=== PATIENT | female | born 1995 | race Caucasian/White ===

== ENCOUNTER → 2016-11-04 | Outpatient (CLI) | payer MEDICAID | LOC: RAD 14:45 | PROVIDERS: ATTEND Nurse Practitioner Women's Health | DX: Z34.83 Encounter for supervision of other normal pregnancy, third trimester (principal) | CPT/HCPCS: 76805 ==

== ENCOUNTER 2016-11-16 18:07 | Outpatient (CLI) | payer MEDICAID ==
--- NOTE | 2016-11-16 19:11 | Non Stress Test Report ---
Non Stress Test Datetime Report Generated by CPN: 11/16/2016 19:10 DEMOGRAPHIC EGA NST: 39.0 INDICATION Indication for Study: Ordered by Provider Indication for Study (NST) Other: no care MONITORING Monitor Explained: Monitor Explained; Test Explained; Patient Verbalized Understanding Time on Monitor: 11/16/2016 18:36 Time off Monitor: 11/16/2016 19:02 NST Duration: 26 NST INTERVENTIONS NST Interventions: Reposition Patient Physician Notified NST: PBrian Peter CNM BABY A: [id number] BABY A Movement : Present Contraction Frequency : irregular FHR Baseline : 125 Accelerations : 15X15 Decelerations : None Variability : Moderate 6-25bpm NST Review: Meets Criteria for Reactive NST NST Review and Verified By : Iain Nix RN NST Results: Reactive NST REPORT Report Trigger: Send Report
== END 2016-11-16 19:03 | disposition home or self-care (01) ==
LOC: LC 18:07
PROVIDERS: ATTEND Obstetrics & Gynecology
PROC: 4A1HXCZ Monitoring of Products of Conception, Cardiac Rate, External Approach (ICD-10-PCS; principal; 2016-11-16)
DX: O47.1 False labor at or after 37 completed weeks of gestation (principal); O09.33 Supervision of pregnancy with insufficient antenatal care, third trimester; Z3A.39 39 weeks gestation of pregnancy
CPT/HCPCS: 59025

== ENCOUNTER 2016-11-21 08:57 | Inpatient (IN) | payer MEDICAID ==
[2016-11-21] MEDS ORDERED: RINGERS SOLUTION,LACTATED 1,000 ML IV PRN (09:50)
[2016-11-21 10:08] LABS: APPEARANCE,URINE CLOUDY; BILIRUBIN,URINE NEGATIVE (NEGATIVE); GLUCOSE, URINE NEGATIVE (NEGATIVE); KETONES,URINE NEGATIVE (NEGATIVE); LEUKOCYTE ESTERASE,URINE MODERATE (NEGATIVE); NITRITE,URINE NEGATIVE (NEGATIVE); PROTEIN,URINE NEGATIVE (NEGATIVE); URINE SPECIFIC GRAVITY 1.015; UROBILINOGEN,URINE NEGATIVE mg/dL (<2.0)
[2016-11-21 10:31] LABS: URINE BARBITURATES SCREEN NEGATIVE; URINE METHADONE SCREEN NEGATIVE; URINE OPIATES LOW NEGATIVE; URINE PHENCYCLIDINE SCREEN NEGATIVE
[2016-11-21] MEDS ORDERED: NALBUPHINE HCL INJ 10 MG/1 ML AMPULE ONE (10:52)
[2016-11-21] MEDS ORDERED: ONDANSETRON HCL INJ/PF 4 MG/2 ML SDV ONE (10:55)
[2016-11-21] MEDS ORDERED: OXYTOCIN/NORMAL SALINE 20 UNIT/1,000 ML RTUINJ ONE (10:57)
[2016-11-21] MEDS ORDERED: LIDOCAINE 1% INJ-PF (10 MG/ML) 30 ML SDV ONE (10:57)
[2016-11-21] MEDS ORDERED: MISOPROSTOL 0.2 MG TABLET ONE (10:57)
[2016-11-21] MEDS ORDERED: FENTANYL CITRATE INJ/PF 100 MCG/2 ML AMPUL ONE (11:13)
[2016-11-21 11:26] LABS: ABSOLUTE EOSINOPHILS # (AUTO) 0.1 10^3/uL (0.0-0.6); ABSOLUTE LYMPHOCYTES (AUTO) 0.9 10^3/uL (0.5-4.7); ABSOLUTE MONOCYTES (AUTO) 0.6 10^3/uL (0.1-1.4); ABSOLUTE NEUT (AUTO) 11.9 10^3/uL (1.7-8.2); BASOPHILS % (AUTO) 0.2 % (0-2); HEMATOCRIT 36.4 % (36.0-47.0); HEMOGLOBIN 12.5 g/dL (12.0-15.5); HGB HCT DIFFERENCE 1.1; LYMPHOCYTES % (AUTO) 6.9 % (13-45); MEAN CORPUSCULAR HEMOGLOBIN 29.2 pg (27.0-33.4); MEAN CORPUSCULAR HGB CONC 34.4 g/dL (32.0-36.0); MEAN CORPUSCULAR VOLUME 85 fl (80-97); MONOCYTES % (AUTO) 4.2 % (3-13); RED BLOOD COUNT 4.29 10^6/uL (3.72-5.28); RED CELL DISTRIBUTION WIDTH 14.5 % (11.5-14.0); SEGMENTED NEUTROPHILS % (AUTO) 87.7 % (42-78); WHITE BLOOD COUNT 13.6 10^3/uL (4.0-10.5)
[2016-11-21] MEDS ORDERED: PROMETHAZINE HCL 25 MG SUPP.RECT PR PRN (12:26)
[2016-11-21] MEDS ORDERED: MAGNESIUM HYDROXIDE SUSP 30 ML UDCUP PO PRN (12:26)
[2016-11-21] MEDS ORDERED: ACETAMINOPHEN WITH CODEINE #3 TABLET PO PRN ×2 (12:26)
[2016-11-21] MEDS ORDERED: PSEUDOEPHEDRINE HCL 30 MG TABLET PO PRN (12:26)
[2016-11-21] MEDS ORDERED: ACETAMINOPHEN 650 MG SUPP.RECT PR PRN (12:26)
[2016-11-21] MEDS ORDERED: BENZOCAINE/MENTHOL AEROSOL SPRAY 56 ML TOP PRN (12:26)
[2016-11-21] MEDS ORDERED: DIBUCAINE 1% OINTMENT 28 GM TP PRN (12:26)
[2016-11-21] MEDS ORDERED: MEASLES,MUMPS&RUBELLA VACC/PF 0.5 ML VIAL SUBCUT PRN (12:26)
[2016-11-21] MEDS ORDERED: ZOLPIDEM TARTRATE 5 MG TABLET PO PRN (12:26)
[2016-11-21] MEDS ORDERED: PROMETHAZINE HCL 25 MG TABLET PO PRN (12:26)
[2016-11-21] MEDS ORDERED: PROMETHAZINE HCL INJ 25 MG/1 ML VIAL IV PRN (12:26)
[2016-11-21] MEDS ORDERED: DIPH/PERTUSS(ACELL)/TETANUS VAC/PF 0.5 ML SYR (>=10YO) IM PRN (12:26)
[2016-11-21] MEDS ORDERED: GLYCERIN/WITCH HAZEL LEAF 1 EACH MED..PAD TP PRN (12:26)
[2016-11-21] MEDS ORDERED: OXYTOCIN/NORMAL SALINE 1,000 ML IV PRN (12:26)
[2016-11-21] MEDS ORDERED: DIPHENHYDRAMINE HCL 25 MG CAPSULE PO PRN (12:26)
[2016-11-21] MEDS ORDERED: NA PHOS,M-B/NA PHOS,DI-BA (ADULT) 133 ML ENEMA PR PRN (12:26)
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
--- NOTE | 2016-11-21 15:09 | Delivery Summary ---
Del Sum A-C Datetime Report Generated by CPN: 11/21/2016 15:08 DELIVERY PERSONNEL DELIVERY PERSONNEL: [id number] Delivery Doctor:: Gaudencio Walters MD Labor and Delivery Nurse:: Maliha Alvarenga RNperformance improvement analyst Nurse:: Hanh Dominguez RN Can Vacuum Tester/CHANNEL CEMENTER OUTSOLE MACHINE: Rolanda Licea, CHOKER SETTER MATERNAL INFORMATION Delivery Anesthesia: None Medications After Delivery: Pitocin Bolus-Please Comment Meds After Delivery Comment: Pitocin 20 units in 1000 mL NS Estimated Blood Loss (ml): 250 (Annotations: Data stored by [facility] on behalf of user) Maternal Complications: None LABOR SUMMARY EDC: 11/23/2016 00:00 No. Babies in Womb: 1 Attempted: No Labor Anesthesia: IV Sedation LABOR INFORMATION Reason for Induction: Not Applicable Onset of Labor: 11/21/2016 07:00 Complete Dilatation: 11/21/2016 11:47 Oxytocin: N/A Group B Beta Strep: Negative Antibiotics # of Doses: 0 Steroids Given: None Reason Steroids Not Administered: Not Applicable MEMBRANES Membranes Rupture Method: Artificial Rupture of Membranes: 11/21/2016 11:32 Length of Rupture (hr): 0.40 Amniotic Fluid Color: Clear Amniotic Fluid Amount: Small Amniotic Fluid Odor: Normal STAGES OF LABOR Stage 1 hr: 4 Stage 1 min: 47 Stage 2 hr: 0 Stage 2 min: 9 Stage 3 hr: 0 Stage 3 min: 13 Total Time in Labor hr: 5 Total Time in Labor min: 9 VAGINAL DELIVERY Episiotomy: None Laceration Extension: Second Degree Laceration Type: Perineal Other Laceration: 3-O Chromic Laceration Repair: Yes Laceration Repair Note: repair with 3-0 chromic in usual fashion Sponge Count Correct: Yes; Vaginal Sweep Performed Sharps Count Correct: Yes CSECTION DELIVERY CSection Incision: N/A BABY A INFORMATION Delivery Date/Time: 11/21/2016 11:56 Method of Delivery: Vaginal Born in Route : No : N/A Forceps: N/A Vacuum Extraction: N/A Shoulder Dystocia : No PRESENTATION/POSITION BABY A Presentation: Cephalic Cephalic Presentation: Vertex Vertex Position: Left Occipital Anterior Breech Presentation: N/A PLACENTA INFORMATION BABY A Placenta Delivery Time : 11/21/2016 12:09 Placenta Method of Delivery: Spontaneous Placenta Status: Delivered SCORES BABY A Heart Rate 1 min: >100 bpm Resp Effort 1 min: Good Cry Reflex Irritability 1 min: Cough or Sneeze or Pulls Away Muscle Tone 1 min: Active Motion Color 1 min: Body [place], Extremities Blue Resuscitation Effort 1 min: Tactile Stimulation SCORE 1 MIN: 9 Heart Rate 5 min: >100 bpm Resp Effort 5 min: Good Cry Reflex Irritability 5 min: Cough or Sneeze or Pulls Away Muscle Tone 5 min: Active Motion Color 5 min: Body [place], Extremities Blue Resuscitation Effort 5 min: Tactile Stimulation SCORE 5 MIN: 9 INFORMATION BABY A Gestational Age at Delivery: 39.5 Gestational Status: Full Term- 39- 40.6 Weeks Outcome : Liveborn Infant Condition : Stable Infant Sex: Male IDENTIFICATION BABY A Verification Date/Time: 11/21/2016 12:30 ID Band Number: [id number] Mother's Name Verified: Yes Infant RN Verifying Infant: Nkechi Dominguez, RN and S. Tavonevejaswinder, RN WEIGHT/LENGTH BABY A Infant Birthweight (gm): 3390 Weight (lb): 7 Weight (oz): 8 Length (in): 20.00 Infant Length (cm): 50.80 CORD INFORMATION BABY A No. Cord Vessels: 3 Nuchal Cord : N/A Infant Suction: Mouth; Nose ASSESSMENT BABY A Complications: None Physical Findings at Delivery: Within Normal Limits Respirations: Appears Normal Skin to Skin Time (min): 75 Client Resource Specialist/ALS Called : No Care By: Nkechi Dominguez RN Transferred To: Remains with Mother SIGNATURES Signature: with User ID: [email or web address]
[2016-11-21] MEDS: IBUPROFEN 800 MG TABLET PO SCH ×2 (15:10→22:05)
[2016-11-21] MEDS: DOCUSATE SODIUM 100 MG CAPSULE PO SCH (17:44)
[2016-11-21] MEDS: FERROUS SULFATE 325 MG TABLET PO SCH (17:45)
[2016-11-21] MEDS: FAMOTIDINE 20 MG TABLET PO SCH (22:05)
[2016-11-22] MEDS: IBUPROFEN 800 MG TABLET PO SCH ×3 (06:13→21:39)
[2016-11-22 07:52] LABS: HEMATOCRIT 31.6 % (36.0-47.0); HEMOGLOBIN 10.6 g/dL (12.0-15.5); HGB HCT DIFFERENCE 0.2; MEAN CORPUSCULAR HEMOGLOBIN 28.9 pg (27.0-33.4); MEAN CORPUSCULAR HGB CONC 33.5 g/dL (32.0-36.0); MEAN CORPUSCULAR VOLUME 86 fl (80-97); RED BLOOD COUNT 3.67 10^6/uL (3.72-5.28); RED CELL DISTRIBUTION WIDTH 14.7 % (11.5-14.0); WHITE BLOOD COUNT 11.6 10^3/uL (4.0-10.5)
[2016-11-22] MEDS: DOCUSATE SODIUM 100 MG CAPSULE PO SCH ×2 (10:01→18:01)
[2016-11-22] MEDS: FAMOTIDINE 20 MG TABLET PO SCH ×2 (10:01→21:39)
[2016-11-22] MEDS: FERROUS SULFATE 325 MG TABLET PO SCH ×2 (10:01→18:01)
[2016-11-22] MEDS: SENNOSIDES/DOCUSATE 8.6-50 MG 1 EACH TABLET PO SCH (10:01)
[2016-11-22] MEDS: PRENATAL VITAMIN W-O CA NO5/FE FUMARATE/FA CAPSULE PO SCH (10:01)
--- NOTE | 2016-11-22 10:01 | PDOC PROGRESS REPORT ---
Subjective-OB Subjective: Post Delivery Day: 1 21 year old. Denies any needs at this time, states lochia is stable, pain well controlled, voiding without difficulty. Physical Exam (OB) Vital Signs: Temp Pulse Resp BP Pulse Ox 98.5 F 79 17 112/70 99 11/22/16 07:54 11/22/16 07:54 11/22/16 07:54 11/22/16 07:54 11/22/16 07:54 Intake & Output 11/21/16 11/22/16 11/23/16 06:59 06:59 06:59 Weight 107.6 kg - PIH/Pre-Eclampsia Clonus: Negative - Lochia Lochia Amount: Small 10-25 ml Lochia Color: Rubra/Red - Abdomen Description: Soft, Round Hernia Present: No Fundal Description: Firm, Midline Fundal Height: u/u - u/2 Objective-Diagnostic Laboratory: 11/22/16 07:19 11/21/16 11/21/16 11/21/16 07:01 11:10 11:10 WBC 13.6 H RBC 4.29 Hgb 12.5 Hct 36.4 MCV 85 MCH 29.2 MCHC 34.4 RDW 14.5 H Plt Count 135 L Seg Neutrophils % 87.7 H Lymphocytes % 6.9 L Monocytes % 4.2 Eosinophils % 1.0 Basophils % 0.2 Absolute Neutrophils 11.9 H Absolute Lymphocytes 0.9 Absolute Monocytes 0.6 Absolute Eosinophils 0.1 Absolute Basophils 0.0 Urine Color YELLOW Urine Appearance CLOUDY Urine pH 7.0 Ur Specific Maurice 1.015 Urine Protein NEGATIVE Urine Glucose (UA) NEGATIVE Urine Ketones NEGATIVE Urine Blood LARGE H Urine Nitrite NEGATIVE Ur Leukocyte Esterase MODERATE H Blood Type O POSITIVE Antibody Screen NEGATIVE 11/22/16 07:19 WBC 11.6 H RBC 3.67 L Hgb 10.6 L Hct 31.6 L MCV 86 MCH 28.9 MCHC 33.5 RDW 14.7 H Plt Count 122 L Seg Neutrophils % Lymphocytes % Monocytes % Eosinophils % Basophils % Absolute Neutrophils Absolute Lymphocytes Absolute Monocytes Absolute Eosinophils Absolute Basophils Urine Color Urine Appearance Urine pH Ur Specific Maurice Urine Protein Urine Glucose (UA) Urine Ketones Urine Blood Urine Nitrite Ur Leukocyte Esterase Blood Type Antibody Screen Assessment and Plan(PN) - Assessment and Plan (1) Vaginal delivery Is this a current diagnosis for this admission?: YesPlan: routine pp care (2) Acute blood loss anemia Is this a current diagnosis for this admission?: YesPlan: ferrous sulfate increase dietary iron - Time Spent with Patient Time with patient: Less than 15 minutes Critical Time spent with patient: Less than 15 minutes Medications reviewed and adjusted accordingly: Yes - Disposition Anticipated Discharge: Home Within: within 24 hours
[2016-11-23] MEDS: IBUPROFEN 800 MG TABLET PO SCH (05:48)
--- NOTE | 2016-11-23 09:26 | PDOC PROGRESS REPORT ---
Subjective-OB Subjective: Post Delivery Day: 21 year old. Denies any needs at this time. Ready to go home. Physical Exam (OB) Vital Signs: Temp Pulse Resp BP Pulse Ox 98.0 F 76 16 122/71 99 11/23/16 07:28 11/23/16 07:28 11/23/16 07:28 11/23/16 07:28 11/23/16 07:28 Intake & Output 11/22/16 11/23/16 11/24/16 06:59 06:59 06:59 Weight 107.6 kg - PIH/Pre-Eclampsia Clonus: Negative - Lochia Lochia Amount: Scant < 10 ml Lochia Color: Rubra/Red - Abdomen Description: Soft, Round Hernia Present: No Bowel Sounds: Normoactive Flatus Presence: Present Stool: Yes Fundal Description: Firm, Midline Fundal Height: u/u - u/2 Objective-Diagnostic Laboratory: 11/22/16 07:19 Assessment and Plan(PN) - Time Spent with Patient Medications reviewed and adjusted accordingly: Yes - Disposition Anticipated Discharge: Home
--- NOTE | 2016-11-23 09:32 | PDOC DISCHARGE SUMMARY ---
Final Diagnosis Discharge Date: 11/23/16 - Final Diagnosis (1) Acute blood loss anemia Is this a current diagnosis for this admission?: Yes (2) Insufficient antepartum care Is this a current diagnosis for this admission?: Yes (3) Is this a current diagnosis for this admission?: Yes (4) Psychosocial stressors Is this a current diagnosis for this admission?: Yes (5) Vaginal delivery Is this a current diagnosis for this admission?: Yes Discharge Data - Discharge Medication Home Medications: No Home Medications 11/16/16 Gestational Age: 39.5 wks Reason(s) for Admission: Onset of Labor Procedures: Ultrasound Intrapartum Procedure(s): Spontaneous Vaginal Delivery Complication(s): Laceration-Perineal Laceration-Degree: 2nd - Data Baby 1 Male at 1 minute: 9 at 5 minutes: 9 Weight: 3.402 kg Home with Mother: Yes Complications: No - Diagnosis Test Laboratory: Temp Pulse Resp BP Pulse Ox 98.0 F 76 16 122/71 99 11/23/16 07:28 11/23/16 07:28 11/23/16 07:28 11/23/16 07:28 11/23/16 07:28 11/21/16 11/21/16 11/22/16 07:01 11:10 07:19 RBC 4.29 3.67 L Hgb 12.5 10.6 L Hct 36.4 31.6 L Urine Opiates Screen NEGATIVE - Discharge information/Instructions Discharge Activity: Activity As Tolerated, Balance Activity w/Rest, Pelvic Rest , Slowly Increase Activity, No tub bath Discharge Diet: Regular Disposition: HOME, SELF-CARE Follow [facility] with: [facility] in: 4, Weeks
[2016-11-23 09:51] VITALS: BP 132/75
[2016-11-23] MEDS: DOCUSATE SODIUM 100 MG CAPSULE PO SCH (10:20)
[2016-11-23] MEDS: FERROUS SULFATE 325 MG TABLET PO SCH (10:20)
[2016-11-23] MEDS: SENNOSIDES/DOCUSATE 8.6-50 MG 1 EACH TABLET PO SCH (10:20)
[2016-11-23] MEDS: FAMOTIDINE 20 MG TABLET PO SCH (10:20)
[2016-11-23] MEDS: PRENATAL VITAMIN W-O CA NO5/FE FUMARATE/FA CAPSULE PO SCH (10:20)
== END 2016-11-23 13:30 | disposition home or self-care (01) | DRG 775 ==
LOC: LC 08:57 → LR 10:37 → 2S 14:25
PROVIDERS: ADMIT Obstetrics & Gynecology; ATTEND Obstetrics & Gynecology
PROC: 10E0XZZ Delivery of Products of Conception, External Approach (ICD-10-PCS; principal; 2016-11-21)
PROC: 0KQM0ZZ Repair Perineum Muscle, Open Approach (ICD-10-PCS; 2016-11-21)
PROC: 10907ZC Drainage of Amniotic Fluid, Therapeutic from Products of Conception, Via Natural or Artificial Opening (ICD-10-PCS; 2016-11-21)
PROC: 4A1HXCZ Monitoring of Products of Conception, Cardiac Rate, External Approach (ICD-10-PCS; 2016-11-21)
DX: O99.02 Anemia complicating childbirth (principal); D62 Acute posthemorrhagic anemia; O70.1 Second degree perineal laceration during delivery; Z87.891 Personal history of nicotine dependence; Z3A.39 39 weeks gestation of pregnancy; Z37.0 Single live birth
CPT/HCPCS: 36415; 80307; 81005; 85025; 85027; 86592; 86850; 86900; 86901; J2300; J2405; J2590; J3010; J3490